=== PATIENT | male | born 2000 | race Caucasian/White ===

== ENCOUNTER 2023-04-19 08:57 | Emergency (ER) | payer OTHER, SELFPAY ==
[2023-04-19] VITALS (14 sets, daily range): BP systolic 101–128; BP diastolic 65–82; PULSE 76–105; RESP 16; TEMP 37.7; O2SAT 96–100; BMI 23.6
--- NOTE | 2023-04-19 10:03 | CT_ITS ---
Final Report Patient: PRISCILA COLIN Facility:?[facility] Patient ID:?[id number] Site Patient ID:?[id number]. Site :?[id number] Study:?CT Head WITHOUT-04/19/2023 10:24:03 AM Ordering Physician:CHRISS Final Report: INDICATION: Syncope COMPARISON: None TECHNIQUE: CT examination of the head was performed as axial sections without intravenous contrast. Images were obtained from the vertex of the skull through the skull base. Please note that all CT scans at this facility use dose modulation, iterative reconstruction, and/or weight-based dosing when appropriate to reduce radiation dose to as low as reasonably achievable. FINDINGS: The brain shows no sign of mass lesion, mass effect, hemorrhage, or edema. The ventricles and sulci are normal in appearance for the patient`s age. The visualized portions of the orbits are normal in appearance. The osseous structures are normal in their appearance with no sign of abnormality in the skull base or calvarium. IMPRESSION: Normal unenhanced head CT. Please note that all CT scans at this facility use dose modulation, iterative reconstruction, and/or weight-based dosing when appropriate to reduce radiation dose to as low as reasonably achievable. Dictated by Austin Jones MD @ 04/19/2023 10:28:30 AM (Electronic Signature)
[2023-04-19] MEDS: MECLIZINE HCL 25 MG TABLET PO (10:56)
[2023-04-19] MEDS: LACTATED RINGERS 1000 ML 1,000 ML IV (10:56)
[2023-04-19 11:00] LABS: Basophils Absolute Auto 0.02 K/uL (0.00-0.30); Basophils Percent Auto 0.2 % (0.0-3.0); Eosinophils Absolute Auto 0.02 K/uL (0.00-0.50); Eosinophils Percent Auto 0.2 % (0.0-7.0); Hematocrit 42.3 % (37.0-53.0); Hemoglobin* 14.2 gm/dL (13.5-17.5); Lymphocytes Percent Auto 9.5 % (20-44); Mean Corpuscular HGB Conc 34 gm/dL (32-36); Mean Corpuscular Hemoglobin 30 pg (26-34); Mean Corpuscular Volume 89 fL (80-100); Monocytes Percent Auto 6.8 % (0.0-11.0); Neutrophils Percent Auto 83.3 % (42.0-72.0); Platelet Count* 241 K/uL (140-440); Red Blood Count 4.78 m/uL (4.30-5.90); White Blood Count* 8.86 K/uL (4.50-11.00)
[2023-04-19 11:05] LABS: Slide Review Reflex No
[2023-04-19 11:17] LABS: Albumin* 4.6 g/dL (3.3-5.0)
[2023-04-19 11:18] LABS: Chloride* 105 mmol/L (96-114); Potassium* 3.9 mmol/L (3.6-5.1); Sodium* 139 mmol/L (135-149)
[2023-04-19 11:20] LABS: Anion Gap 7 mEq/L (7-15); Bilirubin Total* 0.7 mg/dL (0.1-1.5); Carbon Dioxide* 27 mmol/L (20-32); Creatinine* 0.9 mg/dL (0.5-1.5); Est. Creatinine Clearance* 129.83; Estimated Glomerular Filt Rate 125 ml/min
[2023-04-19 11:21] LABS: Alanine Aminotransferase* 8 U/L (4-50); Alkaline Phosphatase* 89 U/L (40-150); Aspartate Amino Transferase* 22 U/L (12-35); Blood Urea Nitrogen* 15 mg/dL (5-24); Calcium* 9.4 mg/dL (8.4-10.6); Glucose* 96 mg/dL (60-115); Magnesium* 1.9 mg/dL (1.5-2.6); Total Protein* 8.3 g/dL (6.0-8.3)
[2023-04-19 11:36] LABS: PCR FLU A Negative PCR FLU A (Negative); PCR FLU B Negative PCR FLU B (Negative); PCR RSV Negative PCR RSV (Negative); SARS PCR* Negative SARS-CoV-2 (Negative)
--- NOTE | 2023-04-19 11:41 | ED_ITS ---
HPI - General Adult General Chief complaint: Syncope/Fainted Stated complaint: passed out Time Seen by Provider: 04/19/23 09:45 Source: patient Mode of arrival: ambulatory Limitations: no limitations History of Present Illness HPI narrative: Patient is a 22-year-old male with a history of Tourette's presenting to the emergency department for dizziness in apparent syncopal episode. He is here with his father. His father states the patient usually wakes up on his own but notes ER to make of the patient's so so patient can get to work. About 730 this morning the patient went to the bathroom at work it was feeling disease very well side of a smoke break. At that point he has syncopal episode and was brought into the office and then picked up by his father. He is unsure how long he was out for what exactly happened. He states now he is feeling dizzy. His father states symptoms is in the patient's answer questions correctly and was concerned about that. He states patient was say he did not eat breakfast and then later stay he did eat breakfast. Patient is speaking at his normal pavan. Patient states he is feeling dizzy right now. Moving his head and his eyes [id number] does make it slightly worse. Denies fevers, chills, abdominal pain, chest pain, shortness of breath, nausea, vomiting, diarrhea. Related Data Previous Rx's Medication Instructions Recorded meclizine 25 mg tablet 25 mg PO QID PRN Dizziness #20 tabs 04/19/23 Allergies Allergy/AdvReac Type Severity Reaction Status Date / Time No Known Drug Allergies Allergy Verified 04/19/23 09:44 Review of Systems Status of ROS: Reports: 10 or more systems reviewed and unremarkable except as noted in History and below [facility] Social History Smoking Status: Current every day smoker Exam Narrative: Exam Narrative: Const: Well-nourished, Well-developed, in mild distress Eyes: PERRL, no conjunctival injection, and symmetrical lids HENT: Atraumatic external nose and ears. Moist mucous membranes. Neck: Symmetric, trachea midline, No thyromegaly. CVS: RRR, No murmurs or gallops. Peripheral pulses 2+ and equal in all extremities RESP: Unlabored respiratory effort. Clear to auscultation bilaterally. GI: Nontender/Nondistended, No rebound or guarding. MSK:Extremities w/o deformity, Normal Active ROM Skin: Warm, Dry. No rashes or lesions. Neuro: Normal Muscle tone, Cranial nerves 2-12 grossly intact, normal [id number], normal [id number], normal gait, normal strength 5/5 upper lower extremities bilaterally, normal sensation upper and lower extremities bila terally, normal rapid alternating movements. Insert exam had normal test of skew, normal head impulse, no nystagmus Psych: Awake, Alert, & Oriented x3. Appropriate mood and affect. Const: Vital Signs, click to edit/add: Vital Signs - 24 hr 04/19/23 09:34 04/19/23 10:10 04/19/23 10:39 Temperature 99.9 F H Pulse Rate 95 101 H Pulse Rate [Right Pulse Oximeter] 105 H Respiratory Rate 16 Blood Pressure Blood Pressure [Ri ght Upper Arm] 128/82 Pulse Oximetry 99 99 98 Oxygen Delivery Me thod Room Air 04/19/23 10:45 04/19/23 10:48 04/19/23 11:00 Temperature Pulse Rate 80 90 80 Pulse Rate [Right Pulse Oximeter] Respiratory Rate Blood Pressure 101/65 Blood Pressure [Ri ght Upper Arm] Pulse Oximetry 99 98 99 Oxygen Delivery Me thod 04/19/23 11:15 04/19/23 11:30 04/19/23 11:45 Temperature Pulse Rate 78 76 79 Pulse Rate [Right Pulse Oximeter] Respiratory Rate Blood Pressure Blood Pressure [Ri ght Upper Arm] Pulse Oximetry 99 99 100 Oxygen Delivery Me thod 04/19/23 11:53 Temperature Pulse Rate 82 Pulse Rate [Right Pulse Oximeter] Respiratory Rate Blood Pressure 109/71 Blood Pressure [Ri ght Upper Arm] Pulse Oximetry 99 Oxygen Delivery Me thod Course Vital Signs Vital signs: Initial Vital Signs Temperature 99.9 F H 04/19/23 09:34 Temperature Source Temporal Artery Scan 04/19/23 09:34 Pulse Rate 105 H 04/19/23 09:34 Respiratory Rate 16 04/19/23 09:34 Blood Pressure 128/82 04/19/23 09:34 Blood Pressure Mean 97 04/19/23 09:34 Blood Pressure Position Sitting 04/19/23 09:34 Pulse Oximetry 99 04/19/23 09:34 Oxygen Delivery Method Room Air 04/19/23 09:34 Vital Signs Temperature 99.9 F H 04/19/23 09:34 Pulse Rate 105 H 04/19/23 09:34 Respiratory Rate 16 04/19/23 09:34 Blood Pressure 128/82 04/19/23 09:34 Pulse Oximetry 99 04/19/23 09:34 Oxygen Delivery Method Room Air 04/19/23 09:34 Temperature 99.9 F H 04/19/23 09:34 Pulse Rate 82 04/19/23 11:53 Respiratory Rate 16 04/19/23 09:34 Blood Pressure 109/71 04/19/23 11:53 Pulse Oximetry 99 04/19/23 11:53 Oxygen Delivery Method Room Air 04/19/23 09:34 Medications Administered Medications: Discontinued Medications Generic Name Dose Route Start Last Admin Trade Name Freq PRN Reason Stop Dose Admin Lactated Ringer's 1,000 mls @ 1,000 mls/hr 04/19/23 10:02 04/19/23 11:53 Lactated Ringers 1000 Ml IV 04/19/23 11:01 Infused .Q1H ONE Infusion Meclizine HCl 25 mg 04/19/23 10:02 04/19/23 10:56 Meclizine Hcl 25 Mg Tablet PO 04/19/23 10:03 25 mg ONCE ONE Administration Medical Decision Making [facility] Narrative Medical decision making narrative: Patient is a 22-year-old male presenting to emergency department for dizziness an apparent episode of syncope. Will do not have the exact details of what happened stool order head CT. He is currently feeling dizzy but HINTS exam is reassuring for peripheral cause. Will give him a L of fluids and a dose of meclizine. Also ordered CBC, CMP, coags/flu/RSV, magnesium, troponin, EKG. EKG returned showing no concerning abnormalities. Troponin within normal limits. Lab work all returned showing no concerning findings. Head CT reviewed by myself and the radiologist showed no concerning findings. His symptoms resolved after the fluids and the medication. His heart rate also improved. Family states he seems to be back to his baseline now. Symptoms could be related to viral etiology or mostly related to dehydration. Hard to say for certain at this time by do not see any emergent causes of his symptoms that will require further intervention. He will be discharged home with meclizine he is agreeable to this plan peer was informed follow-up outpatient if symptoms persist. Him and his father agree with this plan. Lab Data Labs: Lab Results 04/19/23 04/19/23 04/19/23 Range/Units 10:40 10:44 10:47 WBC 8.86 (4.50-11.00) K/uL RBC 4.78 (4.30-5.90) m/uL Hgb 14.2 (13.5-17.5) gm/dL Hct 42.3 (37.0-53.0) % MCV 89 (80-100) fL MCH 30 (26-34) pg MCHC 34 (32-36) gm/dL RDW Coeff of Kellie 12.0 (11.5-15.5) % Plt Count 241 (140-440) K/uL Neut % (Auto) 83.3 H (42.0-72.0) % Lymph % (Auto) 9.5 L (20-44) % Andrews % (Auto) 6.8 (0.0-11.0) % Eos % (Auto) 0.2 (0.0-7.0) % Baso % (Auto) 0.2 (0.0-3.0) % Neut # (Auto) 7.40 H (1.7-7.0) K/uL Lymph # (Auto) 0.80 L (0.90-2.90) K/uL Andrews # (Auto) 0.60 (0.00-0.90) K/UL Eos # (Auto) 0.02 (0.00-0.50) K/uL Baso # (Auto) 0.02 (0.00-0.30) K/uL Abs Immat Gran (auto) 0.00 (0.00-0.30) K/uL Imm/Tot Granulo (auto) 0.0 % Sodium 139 (135-149) mmol/L Potassium 3.9 (3.6-5.1) mmol/L Chloride 105 (96-114) mmol/L Carbon Dioxide 27 (20-32) mmol/L Anion Gap 7 (7-15) mEq/L BUN 15 (5-24) mg/dL Creatinine 0.9 (0.5-1.5) mg/dL Estimated Creat Clear 129.83 Estimated GFR 125 ml/min Glucose 96 (60-115) mg/dL Calcium 9.4 (8.4-10.6) mg/dL Magnesium 1.9 (1.5-2.6) mg/dL Total Bilirubin 0.7 (0.1-1.5) mg/dL AST 22 (12-35) U/L ALT 8 (4-50) U/L Alkaline Phosphatase 89 (40-150) U/L Total Protein 8.3 (6.0-8.3) g/dL Albumin 4.6 (3.3-5.0) g/dL SARS-CoV-2 (PCR) Negative SARS-CoV-2 (Negative) Influenza Type A (PCR) Negative PCR FLU A (Negative) Influenza Type B (PCR) Negative PCR FLU B (Negative) RSV (PCR) Negative PCR RSV (Negative) POC Troponin I 0.00 L (0.01-0.04) ng/ml Imaging Data CT scan - head: Radiologist's impression: Normal unenhanced head CT. Please note that all CT scans at this facility use dose modulation, iterative reconstruction, and/or weight-based dosing when appropriate to reduce radiation dose to as low as reasonably achievable. Dictated by Austin Jones MD @ 04/19/2023 10:28:30 AM ECG Data Attestation: I personally reviewed and interpreted this ECG as follows: Prior ECG tracings: not available for review Interpretation: Sinus tachycardia at 1 2 9 beats per minute, normal intervals, axis appears normal but hard to definitively say,, no ST or T-wave abnormalities. Discharge Plan Discharge Clinical Impression: Dizziness, Dehydration Patient Disposition: Home, Self-Care Condition: Improved Instructions: Near Syncope (ED), Dizziness (ED) Additional Instructions: A believe part of your symptoms were related to dehydration. Also give her prescription for meclizine which can help with dizziness. Take it as needed. Follow-up with primary care provider if symptoms persist. return to emergency department for new worsening symptoms Prescriptions: New meclizine 25 mg tablet 25 mg PO QID PRN (Reason: Dizziness) Qty: 20 0RF Follow Up/Referrals: Provider,Not a Local [Primary Care Provider] - Stand Alone Forms: [facility] Info Instructions
== END 2023-04-19 12:55 | disposition home or self-care (01) ==
PROVIDERS: Emergency Provider Student in an Organized Health Care Education/Training Program
DX: E86.0 Dehydration (principal); R42 Dizziness and giddiness
CPT/HCPCS: 36415; 70450; 80053; 83735; 84484; 85025; 87631; 93005; 99283; 99284; 99285; A9270; J7120